=== PATIENT | male | born 1970 | race Caucasian/White ===

== ENCOUNTER → 2018-10-25 | Outpatient (CLI) | payer BC ==
--- NOTE | 2018-10-25 09:39 | US ---
EXAMINATION TYPE: US venous doppler duplex LE LT DATE OF EXAM: 10/25/2018 9:28 AM COMPARISON: NONE CLINICAL HISTORY: R60.0 LOCALIZED EDEMA. Pt states left leg swelling x many months, no known prior DV T SIDE PERFORMED: Left TECHNIQUE: The lower extremity deep venous system is examined utilizing real time linear array sonog chetan with graded compression, doppler sonography and color-flow sonography. VESSELS IMAGED: External Iliac Vein (EIV) Common Femoral Vein Deep Femoral Vein Greater Saphenous Vein * Femoral Vein Popliteal Vein Small Saphenous Vein * Proximal Calf Veins (* superficial vessels) Left Leg: Negative for DVT Attempted to call office at time of exam, no answer Grayscale, color doppler, spectral doppler imaging performed of the deep veins of the left lower extr emity. There is normal flow, compressibility, vascular waveforms. IMPRESSION: No ultrasound evidence for acute DVT in the left lower extremity.
[2018-10-25 10:09] LABS: Basophils % (A) 1 %; Eosinophils # (A) 0.1 k/uL (0-0.7); Eosinophils % (A) 2 %; HCT 43.9 % (39.0-53.0); HGB 14.9 gm/dL (13.0-17.5); Lymphocytes # (A) 0.9 k/uL (1.0-4.8); Lymphocytes % (A) 30 %; MCH 32.4 pg (25.0-35.0); MCHC 33.9 g/dL (31.0-37.0); MCV 95.8 fL (80.0-100.0); Mean Platelet Volume 8.2; Monocytes # (A) 0.2 k/uL (0-1.0); Monocytes % (A) 5 %; Neutrophils # (A) 1.8 k/uL (1.3-7.7); Neutrophils % (A) 61 %; RBC 4.58 m/uL (4.30-5.90); RDW 13.4 % (11.5-15.5)
[2018-10-25 10:22] LABS: ALT 40 U/L (21-72); AST 43 U/L (17-59); Albumin 3.6 g/dL (3.5-5.0); Alkaline Phosphatase 233 U/L (38-126); Anion Gap 5 mmol/L; Blood Urea Nitrogen 11 mg/dL (9-20); Calcium 9.1 mg/dL (8.4-10.2); Carbon Dioxide 27 mmol/L (22-30); Chloride 106 mmol/L (98-107); Cholesterol 158 mg/dL (<200); Glucose 324 mg/dL (74-99); HDL Cholesterol 52 mg/dL (40-60); LDL Cholesterol,Calculated 77 mg/dL (0-99); Potassium 4.2 mmol/L (3.5-5.1); Sodium 138 mmol/L (137-145); Total Bilirubin 1.5 mg/dL (0.2-1.3); Total Protein 7.7 g/dL (6.3-8.2); Triglycerides 146 mg/dL (<150)
[2018-10-25 10:28] LABS: Appearance,Urine Clear (Clear); Bilirubin,Urine Negative (Negative); Blood,Urine Small (Negative); Color,Urine Yellow; Glucose,Urine (UA) 4+ (Negative); Ketones,Urine Negative (Negative); Leukocyte Esterase,Urine Negative (Negative); Mucus,Urine Rare /hpf; Nitrite,Urine Negative (Negative); Protein,Urine 1+ (Negative); RBC,Urine 10 /hpf (0-5); Specific Gravity,Urine 1.039 (1.001-1.035); Urobilinogen,Urine <2.0 mg/dL (<2.0); WBC,Urine 3 /hpf (0-5)
[2018-10-25 12:56] LABS: Erythrocyte Sedimentation Rate 32 mm/hr (0-15)
[2018-10-25 13:32] LABS: Platelet Count 59 k/uL (150-450)
[2018-10-25 22:13] LABS: Hemoglobin A1C 10.1 % (4.0-6.0)
== END | disposition home or self-care (01) ==
LOC: RADUSWWP 09:05
PROVIDERS: ATTEND Family Medicine
DX: R60.0 Localized edema (principal); M79.605 Pain in left leg; L03.119 Cellulitis of unspecified part of limb; I10 Essential (primary) hypertension
CPT/HCPCS: 80053; 80061; 81001; 83036; 85025; 85652; 86141

== ENCOUNTER → 2018-11-19 | Outpatient (CLI) | payer BC | END | disposition home or self-care (01) | LOC: RADUSWWP 09:00 | PROVIDERS: ATTEND Podiatrist | DX: I87.312 Chronic venous hypertension (idiopathic) with ulcer of left lower extremity (principal); E11.59 Type 2 diabetes mellitus with other circulatory complications | CPT/HCPCS: 93922 ==

== ENCOUNTER → 2019-04-08 | Outpatient (CLI) | payer BC ==
--- NOTE | 2019-04-08 12:21 | P.STRESS ---
- Stress Test Note Stress Test Results/Findings: Exam Performed: stress test Exam Date: 04/08/19 Reason for Exam: Hypertension Height: 5 ft 9 in Weight: 136.078 kg Protocol: Rayo Stage: 3 Duration of Exercise: 6:35 Resting Heart Rate: 85 Resting Blood Pressure: 127/70 Maximum Achieved Heart Rate: 154 Maximum Achieved Blood Pressure: 203/86 85% PMHR: 147 100% PMHR: 173 METS: 7.9 Technologist Comment: Stress Test Results/Findings: This is a 48-year-old gentleman with history of hypertension, diabetes and hypercholesterolemia being evaluated for shortness of breath. Stress data: Baseline EKG showed sinus rhythm with QRS DURATION. Blood pressure at rest was 07/12/1968 with pulse rate of 85. Patient walked on the Rayo protocol for 6 minutes and 35 seconds achieving a maximal heart rate of 151 with a peak blood pressure about 190/94. EKGs taken during and after exercise did not reveal any significant changes from the baseline. Final impression: #1. Negative stress test #2. Patient did not express any chest pain #3. No arrhythmias were detected. #4. Patient's exercise capacity is below average
== END | disposition home or self-care (01) ==
LOC: RADNMMAIN 08:14
PROVIDERS: ATTEND Family Medicine
DX: Z13.6 Encounter for screening for cardiovascular disorders (principal)
CPT/HCPCS: 93017

== ENCOUNTER → 2024-10-21 | Outpatient (CLI) | payer BC ==
--- NOTE | 2024-10-21 09:07 | US ---
EXAMINATION TYPE: US liver DATE OF EXAM: 10/21/2024 COMPARISON: None CLINICAL INDICATION: Male, 54 years old with history of K76.0 FATTY (CHANGE OF) LIVER; Abnormal labs. GB removed. TECHNIQUE: Grayscale and color Doppler imaging of the right upper quadrant was performed. 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 Lobulated cystic lesion in the central right liver lobe measuring 4.1 c m shows venous flow on spectral analysis. There is a contiguous vein seen from left portal to mid abd omen to umbilical region, possible recanalization of umbilical vein Gallbladder: Surgically absent Evidence for sonographic Sotelo's sign: neg CBD: wnl Right Kidney: No hydronephrosis or masses seen IMPRESSION: 1. Heterogeneous and coarsened appearance to the liver with mild hepatomegaly at 18.2 cm. There appea rs to be recanalization of the umbilical vein which can be seen with portal venous hypertension. Prabhakar elate for underlying cirrhosis or other nonspecific hepatocellular disease. 2. Lobulated cystic lesion measuring 4.1 cm central right liver lobe may be contiguous with the vein. This could represent some intrahepatic vascular ectasia. Recommend liver protocol CT or MRI to exclu de an underlying lesion and for more detailed assessment. 3. Status post cholecystectomy. No biliary ductal dilatation. [facility], , 10/21/2024 9:05 AM
== END | disposition home or self-care (01) ==
LOC: RADUSWWP 07:48
PROVIDERS: ATTEND Emergency Medicine
DX: K76.0 Fatty (change of) liver, not elsewhere classified (principal); R16.0 Hepatomegaly, not elsewhere classified; K76.89 Other specified diseases of liver; Z90.49 Acquired absence of other specified parts of digestive tract
CPT/HCPCS: 76705; 93976

== ENCOUNTER → 2024-11-27 | Outpatient (CLI) | payer BC ==
--- NOTE | 2024-11-27 10:25 | MR ---
EXAMINATION TYPE: MR liver wo/w con DATE OF EXAM: 11/27/2024 9:36 AM COMPARISON: Ultrasound 10/21/2024, CT 05/29/2015. CLINICAL INDICATION: Male, 54 years old with history of K76.9 LIVER DISEASE, UNSPECIFIED; PHH, Liver disease TECHNIQUE: Multiplanar multi-sequence imaging was performed without contrast. Post contrast imaging was performed. Post IV contrast subtraction images were also submitted for review. IV Contrast: 11 mL Gadobutrol FINDINGS: LOWER CHEST: No gross irregularity. ABDOMEN Liver: Diffuse heterogenous appearance of the liver with heterogenous postcontrast enhancement. No fo asya masslike enhancement with blush identified. Recanalization of the periumbilical vein is present w ith varicosities. Gallbladder and Bile ducts: No evidence for ductal dilation, or biliary stricture or evidence of chol edocholithiasis. The gallbladder is within normal limits. Pancreas: No ductal dilation. No evidence for solid mass. Spleen: Normal for size. Enlarged measuring up to 20 cm.: Unremarkable. Kidneys: No evidence for obstructive uropathy. No suspicious renal masses. Simple appearing right hep atic 18 mm high T2 signal cyst. Stomach and Bowel: No evidence for bowel wall thickening or evidence for obstruction. Scattered colon ic diverticula. Retroperitoneum/Peritoneum: No evidence of pneumoperitoneum or free fluid. Vasculature: No aortic aneurysm. Dilated main portal vein present up to 20 mm. Multiple varicosities are identified in the upper abdomen Musculoskeletal: The osseous structures appear intact. Lymph Nodes: No gross evidence for lymphadenopathy. Abdominal wall: Unremarkable. IMPRESSION: Heterogenous appearance of the liver suggestive of cirrhosis with superimposed with findings suggesti ve of iron deposition. No suspicious observations. There is evidence of portal hypertension with sple nomegaly and varicosities. [facility], , 11/27/2024 10:23 AM
== END | disposition home or self-care (01) ==
LOC: RADMRIMAIN 08:34
PROVIDERS: ATTEND Internal Medicine Gastroenterology
DX: R16.1 Splenomegaly, not elsewhere classified (principal); K76.9 Liver disease, unspecified; K76.6 Portal hypertension; I83.90 Asymptomatic varicose veins of unspecified lower extremity
CPT/HCPCS: 74183; A9585

== ENCOUNTER 2024-12-10 06:39 | Day surgery (SDC) | payer BC ==
[2024-12-06 10:37] VITALS: BMI 37.6
[~2024-12-10 06:39] MED LIST: LIDOCAINE 1% (10MG/ML) FOR IV START INTRADERMA PRN
[2024-12-10 07:07] VITALS: RESP 16; TEMP 98
[2024-12-10 07:16] LABS: Glucose,Whole Blood 291 mg/dL (70-110)
[2024-12-10] MEDS: LACTATED RINGERS 1,000 ML IV SCH (07:17)
[2024-12-10] MEDS: IV FLUID CONTINUATION 1,000 ML IV ONE ×2 (07:18→07:55)
[2024-12-10] MEDS ORDERED: PROPOFOL 10 MG/ML 20 ML VIAL IV ONE (07:41)
--- NOTE | 2024-12-10 07:56 | P.PCN ---
Date of Procedure: 12/10/24 Procedure(s) Performed: BRIEF HISTORY: Patient is a 54-year-old, pleasant, white male scheduled for endoscopy as a part of screening for esophageal varices. He was diagnosed with nonalcoholic fatty liver disease and liver cirrhosis 2 years ago... PROCEDURE PERFORMED: Esophagogastroduodenoscopy. PREOPERATIVE DIAGNOSIS: History of liver cirrhosis/screening for esophageal varices.. IV sedation per anesthesia. PROCEDURE: After informed consent was obtained, the patient was brought into the endoscopy unit. IV sedation was administered by Anesthesia under continuous monitoring. Initially the Olympus GIF-140 video endoscope was inserted into the mouth. Esophagus intubated without any difficulty. It was gradually advanced into the stomach and duodenum and carefully examined. The bulb and the second part of the duodenum appeared normal. The scope at this time was withdrawn to the stomach, adequately insufflated with air, and upon careful examination, mucosa of the antrum is diffuse gastritis. Liver changes in the mucosa of the, body, cardia and the fundus consistent with mild to moderate portal hypertensive gastropathy.. The scope was then withdrawn into the esophagus. The GE junction was located at 39 cm from the incisors. Small distal esophageal varices identified. Noted Vermox identified. The esophagus appeared normal. There were no erosions or ulcerations seen and the patient tolerated the procedure well. IMPRESSION: 1. Small mid and distal esophageal varices with no readily remarks. 2. Mild to moderate portal hypertensive gastropathy and diffuse antral gastritis. RECOMMENDATIONS: The findings of this examination were discussed with the patient as well as his family. He was advised to have a repeat upper endoscopy in 1 to 2 years to follow-up esophageal varices. Follow-up in the office in 3 months..
[2024-12-10 08:06] LABS: Glucose,Whole Blood 294 mg/dL (70-110)
[2024-12-10 08:11] VITALS: BP 137/77; PULSE 82
== END 2024-12-10 08:30 | disposition home or self-care (01) ==
LOC: ORWHC2ENDO 06:39
PROVIDERS: ATTEND Internal Medicine Gastroenterology
DX: K29.50 Unspecified chronic gastritis without bleeding (principal); K76.0 Fatty (change of) liver, not elsewhere classified; K21.9 Gastro-esophageal reflux disease without esophagitis; I85.10 Secondary esophageal varices without bleeding; K76.6 Portal hypertension; E11.9 Type 2 diabetes mellitus without complications; N20.0 Calculus of kidney; G47.33 Obstructive sleep apnea (adult) (pediatric); Z87.891 Personal history of nicotine dependence; Z99.89 Dependence on other enabling machines and devices; Z79.84 Long term (current) use of oral hypoglycemic drugs; Z79.02 Long term (current) use of antithrombotics/antiplatelets; Z79.899 Other long term (current) drug therapy
CPT/HCPCS: 43235; J2704

== ENCOUNTER 2024-12-24 06:33 | Day surgery (SDC) | payer BC ==
[2024-12-18 15:56] VITALS: BMI 37.6
[~2024-12-24 06:33] MED LIST changes: +LACTATED RINGERS 1,000 ML IV SCH; -LIDOCAINE 1% (10MG/ML) FOR IV START INTRADERMA PRN
[2024-12-24 07:04] VITALS: TEMP 97.5
[2024-12-24] MEDS: IV FLUID CONTINUATION 1,000 ML IV ONE (07:22)
[2024-12-24 07:26] LABS: Glucose,Whole Blood 122 mg/dL (70-110)
[2024-12-24] MEDS ORDERED: PROPOFOL 10 MG/ML 20 ML VIAL IV ONE (08:00)
--- NOTE | 2024-12-24 08:24 | P.GSHP ---
History of Present Illness H&P Date: 12/24/24 Chief Complaint: Colon cancer screening 54-year-old male here for colonoscopy. He has not had 1 previously. No bowel complaints. No family history of colon cancer. Patient with personal history of cirrhosis. Past Medical History Past Medical History: Diabetes Mellitus, Liver Disease, Sleep Apnea/CPAP/BIPAP Additional Past Medical History / Comment(s): fatty liver, Hx. kidney stones in 2014. LOW PLATELETS, DX NON ALCOHOLIC CIRRHOSIS History of Any Multi-Drug Resistant Organisms: MRSA Date of last positivie culture/infection: 2005 MDRO Source:: lip Past Surgical History: Cholecystectomy, Orthopedic Surgery, Tonsillectomy Additional Past Surgical History / Comment(s): Finger reconstruction 20 yrs.ago LT RING, Vasectomy. EGD, Past Anesthesia/Blood Transfusion Reactions: No Reported Reaction Smoking Status: Former smoker - Past Family History Mother Family Medical History: No Reported History Medications and Allergies Home Medications Medication Instructions Recorded Confirmed Type Atorvastatin [Lipitor] 20 mg PO HS 12/06/24 12/24/24 History Semaglutide [Ozempic] 1 mg SQ SA 12/06/24 12/24/24 History Empagliflozin/Metformin HCl 1 each PO BID 12/18/24 12/24/24 History [Synjardy 12.5-1,000 mg Tablet] Allergies Allergy/AdvReac Type Severity Reaction Status Date / Time No Known Allergies Allergy Verified 12/24/24 06:57 Surgical - Exam Vital Signs Temp Pulse Resp BP Pulse Ox 97.5 F L 79 18 120/61 97 12/24/24 07:02 12/24/24 07:02 12/24/24 07:02 12/24/24 07:02 12/24/24 07:02 Physical exam: General: Well-developed, well-nourished HEENT: Normocephalic, sclerae nonicteric Abdomen: Nontender, nondistended Extremities: No edema Neuro: Alert and oriented Results - Labs Abnormal Lab Results - Last 24 Hours (Table) 12/24/24 Range/Units 07:12 POC Glucose (mg/dL) 122 H (70-110) mg/dL Assessment and Plan (1) Colon cancer screening Narrative/Plan: Will proceed with colonoscopy at this time. Current Visit: Yes Status: Acute Code(s): Z12.11 - ENCOUNTER FOR SCREENING FOR MALIGNANT NEOPLASM OF COLON SNOMED Code(s): 514984573
--- NOTE | 2024-12-24 08:25 | P.PCN ---
Date of Procedure: 12/24/24 Procedure(s) Performed: PREOPERATIVE DIAGNOSIS: Colon cancer screening POSTOPERATIVE DIAGNOSIS: Diverticulosis PROCEDURE: Colonoscopy ANESTHESIA: MAC SURGEON: Rafat Ramirez M.D. SPECIMENS: None ENDOSCOPIC PROCEDURE: The patient was placed on the endoscopy table in the left decubitus position. The Olympus colonoscope was inserted into the anus and passed under direct visualization to the base of the cecum. The appendiceal orifice was visualized. From that point the scope was slowly withdrawn inspe cting all surfaces carefully. There were no neoplastic inflammatory or polypoid lesions throughout the cecum, ascending, transverse, descending, sigmoid and rectum. There was mild scattered diverticulosis noted. Digital rectal examination was normal. The patient was taken to the recovery room in stable condition per anesthesia guidelines. RECOMMENDATIONS: Resume diet. Repeat colonoscopy 10 years.
[2024-12-24 08:44] VITALS: BP 111/57; PULSE 77; RESP 16
== END 2024-12-24 09:03 | disposition home or self-care (01) ==
LOC: ORWHC2ENDO 06:33
PROVIDERS: ATTEND Surgery
DX: Z12.11 Encounter for screening for malignant neoplasm of colon (principal); K57.30 Diverticulosis of large intestine without perforation or abscess without bleeding; E11.9 Type 2 diabetes mellitus without complications; E78.5 Hyperlipidemia, unspecified; G47.33 Obstructive sleep apnea (adult) (pediatric); K74.60 Unspecified cirrhosis of liver; K76.0 Fatty (change of) liver, not elsewhere classified; D69.6 Thrombocytopenia, unspecified; Z79.85 Long-term (current) use of injectable non-insulin antidiabetic drugs; Z79.84 Long term (current) use of oral hypoglycemic drugs; Z79.899 Other long term (current) drug therapy; Z86.14 Personal history of Methicillin resistant Staphylococcus aureus infection; Z87.891 Personal history of nicotine dependence
CPT/HCPCS: 45378; J2704